=== PATIENT | female | born 1995 | race Caucasian/White ===

== ENCOUNTER 2021-09-27 17:31 | Emergency (ER) | payer MEDICAID ==
[~2021-09-27] VITALS: Ht 165.1 cm; Wt 136.0 kg
[2021-09-27] MEDS ORDERED: KETOROLAC 60MG/2ML VIAL IM NR (22:30)
[2021-09-27 22:51] VITALS: BP 129/74
== END 2021-09-27 23:54 | disposition home or self-care (01) ==
LOC: ER 17:31
DX: R07.89 Other chest pain (principal); Z90.49 Acquired absence of other specified parts of digestive tract; Z87.19 Personal history of other diseases of the digestive system
CPT/HCPCS: 71045; 93005; 96372; 99283; J1885

== ENCOUNTER 2022-04-28 10:09 | Emergency (ER) | payer MEDICAID, OTHER ==
[~2022-04-28] VITALS: Ht 165.1 cm; Wt 104.0 kg
[2022-04-28 11:00] VITALS: BP 147/40
[2022-04-28] MEDS ORDERED: KETOROLAC 60MG/2ML VIAL IM ONE (11:00)
[2022-04-28] MEDS ORDERED: ACET-2708 MT (12:19)
[2022-04-28] MEDS ORDERED: NAPR-681 MT (12:19)
== END 2022-04-28 12:43 | disposition home or self-care (01) ==
LOC: ER 10:09
DX: M54.30 Sciatica, unspecified side (principal); M20.11 Hallux valgus (acquired), right foot; Z90.49 Acquired absence of other specified parts of digestive tract
CPT/HCPCS: 73620; 81025; 96372; 99283; J1885

== ENCOUNTER 2023-02-01 23:30 | Emergency (ER) | payer MEDICAID ==
[~2023-02-01] VITALS: Ht 165.1 cm; Wt 124.5 kg
[~2023-02-01 23:30] MED LIST: ACET-2708 MT; LEVO-65 MT; NAPR-681 MT
[2023-02-02 00:01] VITALS: O2SAT 98
[2023-02-02 00:25] LABS: CLARITY URINE CLOUDY (CLEAR); COLOR URINE YELLOW (YELLOW); GLUCOSE URINE NEGATIVE (NEGATIVE); KETONES URINE 1+ (NEGATIVE); LEUKOCYTE ESTERASE URINE TRACE (NEGATIVE); NITRITE URINE NEGATIVE (NEGATIVE); OCCULT BLOOD URINE TRACE (NEGATIVE); PROTEIN URINE TRACE (NEGATIVE); SPECIFIC GRAVITY URINE 1.026 (1.005-1.030)
[2023-02-02 00:27] LABS: BACTERIA URINE NONE SEEN; SQUAMOUS EPITHELIAL CELL URINE 1+ /lpf (RARE/1+); WBC URINE 0-2 /hpf (0-2); YEAST URINE NONE SEEN
[2023-02-02 00:44] LABS: BASOPHILS % 0.6 % (0.0-2.0); EOSINOPHILS % 1.4 % (0.0-5.0); HEMATOCRIT. 42.5 % (36.0-48.0); HEMOGLOBIN. 14.2 g/dL (12.0-16.0); LYMPHOCYTES % 24.1 % (20.0-50.0); MEAN CORPUSCULAR HGB CONC 33.4 g/dL (31.0-37.0); MEAN CORPUSCULAR VOLUME 86.9 fL (81.0-99.0); MEAN PLATELET VOLUME 8.3 fl (7.4-10.4); MONOCYTES % 7.3 % (2.0-8.0); NEUTROPHILS % 66.6 % (40.0-76.0); PLATELET 285 x1000/uL (130-400); RED BLOOD CELL COUNT 4.89 mill/uL (4.2-5.4); RED CELL DISTRIBUTION WIDTH 13.5 % (11.6-14.6); WHITE BLOOD COUNT 11.4 x1000/uL (4.5-11.0)
[2023-02-02 00:49] LABS: CHLORIDE 108 mEq/L (98-107); INDEX HEMOLYSI 1 (1-3); INDEX ICTERIC 1 (1-4); INDEX LIPEMIC 1 (1-3); POTASSIUM 3.5 mEq/L (3.5-5.1); SODIUM 138 mEq/L (136-145)
[2023-02-02 00:58] LABS: ALANINE AMINOTRANSFERASE 54 IU/L (13-61); ALBUMIN 3.9 g/dL (3.4-5.0); ASPARTATE AMINOTRANSFERASE 28 IU/L (15-37); BILIRUBIN TOTAL 0.5 mg/dL (0.1-1.0); CALCIUM 8.9 mg/dL (8.5-10.1); CARBON DIOXIDE 24 mEq/L (21-32); CREATININE 0.6 mg/dL (0.6-1.3); GLUCOSE 101 mg/dL (70-105); PROTEIN TOTAL 8.2 g/dL (6.0-8.3); UREA NITROGEN BLOOD 12 mg/dL (7-21)
[2023-02-02 02:15] LABS: RBC URINE 0-2 /hpf (0-2)
[2023-02-02] MEDS ORDERED: NITR-87 MT (02:27)
[2023-02-02] MEDS ORDERED: IBUP-2029 MT (02:27)
[2023-02-02] MEDS ORDERED: FAMO-135 MT (02:27)
[2023-02-02] MEDS ORDERED: KETOROLAC 60MG/2ML VIAL IM ONE (02:45)
[2023-02-02 03:18] VITALS: BP 128/76; PULSE 80; RESP 20; TEMP 98.2
== END 2023-02-02 03:20 | disposition home or self-care (01) ==
LOC: ER 23:30
DX: K29.70 Gastritis, unspecified, without bleeding (principal); N39.0 Urinary tract infection, site not specified; Z98.890 Other specified postprocedural states
CPT/HCPCS: 99283; 80053; 81003; 81025; 83690; 85025; 36415; 96372; J1885

== ENCOUNTER 2023-03-06 01:02 | Emergency (ER) | payer MEDICAID, OTHER ==
[~2023-03-06] VITALS: Ht 165.1 cm; Wt 128.2 kg
[~2023-03-06 01:02] MED LIST changes: +FAMO-135 MT; +IBUP-2029 MT; +NITR-87 MT
[2023-03-06 01:15] VITALS: O2SAT 100
[2023-03-06] MEDS ORDERED: PYR200 MT (03:47)
[2023-03-06] MEDS ORDERED: IBUP-2029 MT (03:47)
[2023-03-06] MEDS ORDERED: CEPH500T MT (03:47)
[2023-03-06] MEDS ORDERED: HYDROCODONE/ACETAMINOPHEN 5/325MG TABLET PO ONE (04:00)
[2023-03-06 04:10] VITALS: BP 144/98; PULSE 87; RESP 17; TEMP 98.2
[2023-03-06 06:00] LABS: CLARITY URINE CLEAR (CLEAR); COLOR URINE YELLOW (YELLOW); PH URINE 7.5 (4.5-8.0); SPECIFIC GRAVITY URINE 1.015 (1.005-1.030)
[2023-03-06 06:01] LABS: GLUCOSE URINE NEGATIVE (NEGATIVE); KETONES URINE TRACE (NEGATIVE); LEUKOCYTE ESTERASE URINE NEGATIVE (NEGATIVE); NITRITE URINE NEGATIVE (NEGATIVE); OCCULT BLOOD URINE NEGATIVE (NEGATIVE); PROTEIN URINE NEGATIVE (NEGATIVE); UROBILINOGEN URINE 0.2 E.U./dL (0.2-1.0)
== END 2023-03-06 04:14 | disposition home or self-care (01) ==
LOC: ER 01:02
DX: N39.0 Urinary tract infection, site not specified (principal)
CPT/HCPCS: 81003; 81025; 99283

== ENCOUNTER 2023-04-15 01:16 | Emergency (ER) | payer MEDICAID, OTHER ==
[~2023-04-15] VITALS: Ht 165.1 cm; Wt 127.9 kg
[~2023-04-15 01:16] MED LIST changes: +CEPH500T MT; +PYR200 MT
[2023-04-15 01:54] VITALS: TEMP 98.2; O2SAT 100
[2023-04-15 02:38] LABS: CLARITY URINE CLEAR (CLEAR); COLOR URINE YELLOW (YELLOW); GLUCOSE URINE NEGATIVE (NEGATIVE); KETONES URINE NEGATIVE (NEGATIVE); LEUKOCYTE ESTERASE URINE NEGATIVE (NEGATIVE); NITRITE URINE NEGATIVE (NEGATIVE); OCCULT BLOOD URINE NEGATIVE (NEGATIVE); PH URINE 7.5 (4.5-8.0); PROTEIN URINE NEGATIVE (NEGATIVE); SPECIFIC GRAVITY URINE 1.018 (1.005-1.030)
[2023-04-15 03:24] LABS: HCG SCREEN NEGATIVE
[2023-04-15] MEDS ORDERED: HYDROCODONE/ACETAMINOPHEN 5/325MG TABLET PO ONE (04:15)
[2023-04-15 04:19] VITALS: BP 128/85; PULSE 97; RESP 16
[2023-04-15 04:40] LABS: BASOPHILS % 0.4 % (0.0-2.0); EOSINOPHILS % 2.2 % (0.0-5.0); HEMATOCRIT. 42.7 % (36.0-48.0); HEMOGLOBIN. 13.7 g/dL (12.0-16.0); LYMPHOCYTES % 24.2 % (20.0-50.0); MEAN CORPUSCULAR HGB CONC 32.1 g/dL (31.0-37.0); MEAN CORPUSCULAR VOLUME 90.3 fL (81.0-99.0); MEAN PLATELET VOLUME 8.6 fl (7.4-10.4); MONOCYTES % 7.1 % (2.0-8.0); NEUTROPHILS % 66.1 % (40.0-76.0); PLATELET 257 x1000/uL (130-400); RED BLOOD CELL COUNT 4.73 mill/uL (4.2-5.4); RED CELL DISTRIBUTION WIDTH 13.9 % (11.6-14.6); WHITE BLOOD COUNT 13.3 x1000/uL (4.5-11.0)
[2023-04-15 04:54] LABS: CARBON DIOXIDE 27 mEq/L (21-32); CHLORIDE 108 mEq/L (98-107); CREATININE 0.6 mg/dL (0.6-1.0); GLUCOSE 83 mg/dL (70-105); POTASSIUM 3.7 mEq/L (3.5-5.1); SODIUM 141 mEq/L (136-145); UREA NITROGEN BLOOD 14 mg/dL (9-23)
[2023-04-15] MEDS ORDERED: IBUP-2029 MT (05:32)
[2023-04-15] MEDS ORDERED: DOXY100T2 MT (05:32)
[2023-04-17 04:08] LABS: CHLAMYDIA TRACHOMATIS NAA Negative (Negative); NEISSERIA GONORRHOEAE NAA Negative (Negative)
== END 2023-04-15 05:48 | disposition home or self-care (01) ==
LOC: ER 01:16
DX: R10.2 Pelvic and perineal pain (principal); Z90.49 Acquired absence of other specified parts of digestive tract
CPT/HCPCS: 36415; 80048; 81003; 81025; 84703; 85025; 87491; 87591; 99283